=== PATIENT | female | born 1960 | race Caucasian/White ===

== ENCOUNTER 2021-01-07 13:30 | Outpatient (REF) | payer OTHER, SELFPAY ==
--- NOTE | ~2021-01-07 | MM_ITS ---
EXAMINATION: MM SCREENING DIGITAL BREAST TOMOSYNTHESIS, BILATERAL CLINICAL INFORMATION: Screening. Asymptomatic. Family history breast cancer, mother. The lifetime risk of breast cancer based on the Tyrer-Cuzick Model is 24%. COMPARISON: Mammography: 01/08/2020, 12/27/2019, 11/28/2018, 10/06/2017, 09/26/2017, 10/31/2016 TECHNIQUE: Digital breast tomosynthesis is performed in both the craniocaudal and mediolateral oblique views along with computer-aided detection (CAD). Synthesized 2D images are generated from the tomosynthesis. FINDINGS: The breasts are heterogeneously dense, which may obscure small masses (ACR BI-RADS breast composition Category c). Breast tissue composition borders on average fibroglandular. Parenchymal pattern is similar to prior studies. There are scattered bilateral stable asymmetries in the following fibronodular pattern as before. There is no developing density or interval mass or architectural abnormality. There are scattered bilateral round isolated and small grouped calcifications again seen. The axilla are unremarkable. There are no significant changes. MM/MM tomosynthesis screening BI IMPRESSION: No significant changes from prior studies. ASSESSMENT: BI-RADS 2: Benign RECOMMENDATION: Routine annual mammography screening. This patient's information was entered into a reminder system with a target due date for their next mammogram.
== END 2021-01-07 13:31 | disposition home or self-care (01) ==
LOC: HO.MAMMO 13:30
PROVIDERS: PCP Nurse Practitioner Family; Visit Provider Nurse Practitioner Family
DX: Z12.31 Encounter for screening mammogram for malignant neoplasm of breast (principal)
CPT/HCPCS: 77063; 77067

== ENCOUNTER 2022-01-14 09:20 | Outpatient (REF) | payer OTHER, SELFPAY ==
--- NOTE | ~2022-01-14 | MM_ITS ---
EXAMINATION: MM SCREENING DIGITAL BREAST TOMOSYNTHESIS, BILATERAL CLINICAL INFORMATION: Screening. Asymptomatic. Family history breast cancer, mother. The lifetime risk of breast cancer based on the Tyrer-Cuzick Model is 25%. COMPARISON: Mammography: 01/07/2021, 6 01/08/2020, 12/27/2019, 11/28/2018 TECHNIQUE: Digital breast tomosynthesis is performed in both the craniocaudal and mediolateral oblique views along with computer-aided detection (CAD). Synthesized 2D images are generated from the tomosynthesis. FINDINGS: There are scattered areas of fibroglandular density (ACR BI-RADS breast composition Category b). Breast tissue composition borders on heterogeneously dense. There is fine fibronodular parenchymal pattern and stable bilateral asymmetries similar to prior studies. There is no interval significant mass or architectural abnormality or developing density. The axilla and skin contours are unremarkable. Right breast has stable grouped benign-appearing calcifications mid upper outer quadrant and some other scattered calcifications as before. Left breast has increased grouped calcifications overlying stable smooth nodule posterior 7:00 position, likely representing degenerating fibroadenoma. Patient will be recalled for additional magnification views to fully characterize. 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 Right: -No mammographic evidence of malignancy. ASSESSMENT: BI-RADS 0: Incomplete - Need Additional Imaging Evaluation RECOMMENDATION: 1. Additional views of the left breast (magnification CC, magnification LM. 2. Radiology department staff will contact the patient for additional imaging. This patient's information was entered into a reminder system with a target due date for their next mammogram.
== END 2022-01-14 09:21 | disposition home or self-care (01) ==
LOC: HO.MAMMO 09:20
PROVIDERS: PCP Nurse Practitioner Family; Visit Provider Nurse Practitioner Family
DX: Z12.31 Encounter for screening mammogram for malignant neoplasm of breast (principal)
CPT/HCPCS: 77063; 77067

== ENCOUNTER 2022-01-31 15:12 | Outpatient (REF) | payer OTHER, SELFPAY ==
--- NOTE | ~2022-01-31 | MM_ITS ---
EXAMINATION: MM DIAGNOSTIC DIGITAL MAMMOGRAPHY, LEFT CLINICAL INFORMATION: Density with calcifications. COMPARISON: Mammography: 01/14/2022 and studies dating back to 05/22/2015. TECHNIQUE: Digital mammography is performed in the following views: Spot magnification views in craniocaudal and 90 degree mediolateral views. FINDINGS: The breasts are heterogeneously dense, which may obscure small masses (ACR BI-RADS breast composition Category c). A density with calcifications is seen about the inferior aspect of the left breast without evidence of layering of the calcification on 90 degree view. One of the calcifications is very coarse with the other calcifications being punctate without linear or branching forms. These may represent calcifications in a fibroadenoma. A six-month followup left breast mammography with spot magnification views is recommended to ensure stability. Results are provided to the patient at time of visit by the technologist. MM/MM added views LT IMPRESSION: Probably benign calcifications with density about the inferior aspect of the left breast for which six-month followup study is recommended. ASSESSMENT: BI-RADS 3: Probably Benign. RECOMMENDATION: Diagnostic mammography in 6 months. This patient's information was entered into a reminder system with a target due date for their next mammogram.
== END 2022-01-31 15:13 | disposition home or self-care (01) ==
LOC: HO.MAMMO 15:12
PROVIDERS: PCP Nurse Practitioner Family; Visit Provider Nurse Practitioner Family
DX: R92.1 Mammographic calcification found on diagnostic imaging of breast (principal); R92.8 Other abnormal and inconclusive findings on diagnostic imaging of breast
CPT/HCPCS: 77065

== ENCOUNTER 2022-08-02 13:50 | Outpatient (REF) | payer OTHER, MEDICAID, SELFPAY ==
--- NOTE | ~2022-08-02 | MM_ITS ---
EXAMINATION: MM DIAGNOSTIC DIGITAL BREAST TOMOSYNTHESIS, LEFT CLINICAL INFORMATION: Short interval follow-up probable benign calcifications posterior 6:30 left breast. Family history breast cancer, mother. COMPARISON: Mammography: 01/31/2022, 01/14/2022 (BI-RADS 0) 01/07/2021 TECHNIQUE: Digital breast tomosynthesis is performed in both the craniocaudal and mediolateral oblique views along with computer-aided detection (CAD). Synthesized 2D images are generated from the tomosynthesis. Additional magnification left CC and magnification left LM x2 views are obtained. FINDINGS: The breasts are heterogeneously dense, which may obscure small masses (ACR BI-RADS breast composition Category c). Breast tissue composition borders on average fibroglandular. There is no developing density or interval architectural abnormality. Grouped calcifications for follow-up posterior 6:30 position overlying a stable nodular asymmetry are similar to prior diagnostic exam, possibly fibroadenomatous change. They will be reassessed again at time of annual bilateral mammography, due in 6 months. Results are provided to the patient at time of visit by the technologist. MM/MM tomosynthesis diagnostic LT IMPRESSION: No significant change in probable benign calcifications posterior lower left breast, possibly early fibroadenomatous changes. ASSESSMENT: BI-RADS 3: Probably Benign RECOMMENDATION: Diagnostic mammography at time of annual bilateral exam, due in 6 months. This patient's information was entered into a reminder system with a target due date for their next mammogram.
== END 2022-08-02 13:51 | disposition home or self-care (01) ==
LOC: HO.MAMMO 13:50
PROVIDERS: PCP Nurse Practitioner Family; Visit Provider Nurse Practitioner Family
DX: R92.1 Mammographic calcification found on diagnostic imaging of breast (principal); R92.8 Other abnormal and inconclusive findings on diagnostic imaging of breast
CPT/HCPCS: 77061; 77065

== ENCOUNTER 2023-01-26 12:48 | Outpatient (REF) | payer OTHER, SELFPAY ==
--- NOTE | ~2023-01-26 | MM_ITS ---
EXAMINATION: MM DIAGNOSTIC DIGITAL BREAST TOMOSYNTHESIS, BILATERAL CLINICAL INFORMATION: Diagnostic for evaluation of calcifications in the left breast posterior, lower slightly inner quadrant. Patient also due for bilateral screening exam. The lifetime risk of breast cancer based on the Tyrer-Cuzick Model is 25%. Additional annual screening with breast MRI may be of benefit in women with a Score of 20% or greater. COMPARISON: Mammography: 08/02/2022, 01/31/2022, 01/14/2022, 01/07/2021, and dating back to 2019. TECHNIQUE: Digital breast tomosynthesis is performed in both the craniocaudal and mediolateral oblique views along with computer-aided detection (CAD). Synthesized 2D images are generated from the tomosynthesis. In addition a 2-D left spot CC magnification view was obtained. FINDINGS: The breasts are heterogeneously dense, which may obscure small masses (ACR BI-RADS breast composition Category c). In the left breast, slightly inner lower quadrant, there is a group of calcifications, with increasing number but with stable overall course morphology supporting degenerating fibroadenoma. These remain probably benign, and 6 month interval follow-up right breast diagnostic mammogram to include CC and ML spot magnification views recommended. In the right breast, there are stable benign calcifications in the outer quadrant as before. There are no suspicious masses, suspicious grouped calcifications, or areas of architectural distortion in either breast. The overall heterogeneously dense parenchymal pattern is stable from prior exams. Results were provided to the patient at time of visit by the technologist. MM/MM tomosynthesis diagnostic BI IMPRESSION: Similar probably benign findings left breast, most likely related to continued degeneration of a fibroadenoma. 6 month follow-up mammography recommended as detailed above. No suspicious abnormalities in the right breast. Stable benign right breast findings. ASSESSMENT: BI-RADS BI-RADS 3 - Probably benign finding(s) - 6 month follow-up suggested RECOMMENDATION: 6 Month F/U This patient's information was entered into a reminder system with a target due date for their next mammogram.
== END 2023-01-26 12:49 | disposition home or self-care (01) ==
LOC: HO.MAMMO 12:48
PROVIDERS: PCP Nurse Practitioner Family; Visit Provider Nurse Practitioner Family
DX: R92.8 Other abnormal and inconclusive findings on diagnostic imaging of breast (principal)
CPT/HCPCS: 77062; 77066

== ENCOUNTER → 2023-01-26 13:00 | Outpatient (BNV) | payer OTHER, SELFPAY | PROVIDERS: PCP Nurse Practitioner Family; Visit Provider Radiology Diagnostic Radiology | DX: R92.1 Mammographic calcification found on diagnostic imaging of breast (principal) | CPT/HCPCS: 77062; 77066 ==

== ENCOUNTER 2023-08-01 08:38 | Outpatient (REF) | payer OTHER, SELFPAY ==
--- NOTE | ~2023-08-01 | MM_ITS ---
EXAMINATION: MM DIAGNOSTIC DIGITAL BREAST TOMOSYNTHESIS, LEFT CLINICAL INFORMATION: MM diagnostic mammography followed calcifications of the lower inner quadrant of the left breast. COMPARISON: Mammography: This study is compared with prior mammograms dating back to 2018. TECHNIQUE: Digital breast tomosynthesis is performed in both the craniocaudal and mediolateral oblique views along with computer-aided detection (CAD). Synthesized 2D images are generated from the tomosynthesis. FINDINGS: There are scattered areas of fibroglandular density (ACR BI-RADS breast composition Category b). There are grouped calcifications in the lower inner quadrant of the left breast. Several of them are coarse however, there are smaller calcifications in the same region. The smaller calcifications are indeterminate and may not be positive the same process larger calcifications. For this reason, stereotactic biopsy is advised MM/MM tomosynthesis diagnostic LT IMPRESSION: Stereotactic biopsy advised for indeterminate left breast calcifications. ASSESSMENT: BI-RADS BI-RADS 4 - Suspicious finding RECOMMENDATION: Biopsy recommended Results were provided to the patient at time of visit by the technologist. This patient's information was entered into a reminder system with a target due date for their next mammogram.
== END 2023-08-01 08:39 | disposition home or self-care (01) ==
LOC: HO.MAMMO 08:38
PROVIDERS: PCP Nurse Practitioner Family; Visit Provider Nurse Practitioner Family
DX: R92.8 Other abnormal and inconclusive findings on diagnostic imaging of breast (principal)
CPT/HCPCS: 77061; 77065

== ENCOUNTER → 2023-08-01 09:00 | Outpatient (BNV) | payer OTHER, SELFPAY | PROVIDERS: PCP Nurse Practitioner Family; Visit Provider Radiology Diagnostic Radiology | DX: R92.1 Mammographic calcification found on diagnostic imaging of breast (principal) | CPT/HCPCS: 77061; 77065 ==

== ENCOUNTER 2023-08-04 08:05 | Outpatient (AMB) | payer OTHER, SELFPAY ==
--- NOTE | 2023-08-04 08:14 | MHC.OFFVIS ---
Intake Vital Signs 08/04/23 08:26 Height 5 ft 9 in Weight 177 lb BMI 26.1 BP 165/90 H Blood Pressure Location Lt brachial Position Sitting Pulse 93 Intake Visit Reasons: Left breast stereo bx for calcifications Intake Note: Patient is seen in office for stereo biopsy consult, following left breast for calcifications left inner quadrant. 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 This is a combination of both large and microcalcifications which were felt to be indeterminate therefore stereotactic guided core biopsy recommended (BI-RADS 4). She reports a sensation in her left breast over the past 6 months was unable to feel any palpable mass. She denies any skin change, nipple discharge, enlarged lymph nodes or other breast changes. She does have tenderness in the right breast on occasion. She denies a previous history of breast surgery or breast cancer. Her family history is significant for her mother having breast cancer in her late 50s. Her sister has history of endometrial cancer. She is . [facility] Surgical History History of colonoscopy History of foot surgery History of surgery on arm Family History Father Cancer Mother Breast cancer Maternal Aunt Breast cancer Review of Systems Const All systems reviewed & are unremarkable except as noted in HPI and below Physical Exam Vital Signs: Last Vital Signs Pulse 93 08/04/23 08:26 BP 165/90 H 08/04/23 08:26 BMI result Body Mass Index 26.1 Const General: cooperative and no acute distress Nutritional Appearance: well nourished Orientation/consciousness: patient oriented x3 Limitations: no limitations HEENT Head: Yes normocephalic and Yes atraumatic Ears: hearing grossly normal bilaterally Chest Other: Left breast: No skin change, no nipple retraction, no nipple discharge, no palpable mass, no enlarged lymph nodes. Right breast: No skin change, no nipple retraction, no nipple discharge, no palpable mass, no enlarged lymph nodes Resp Effort & Inspection: normal respiratory effort, no audible wheezes, no cough and no respiratory distress Cardio Jugular venous distension: no JVD GI Inspection: Yes normal to inspection Skin Other: Warm, dry, no rash Neuro General: patient oriented x3 Extrem General: Yes no clubbing, cyanosis or edema Results Reviewed Results Reviewed: Left breast: Assessment & Plan Assessment & Plan (1) Abnormal mammogram of left breast: Code(s): R92.8 - Other abnormal and inconclusive findings on diagnostic imaging of breast Plan 63-year-old female patient presenting with a recent mammogram which revealed cluster of microcalcifications in the left breast among larger grouping of calcifications felt to be indeterminate for malignancy (BI-RADS 4). Stereotactic guided core biopsy is scheduled for next week at the [facility]. On examination the patient has no suspicious findings with special attention to the left breast as described by the mammogram. Some mild tenderness is noted in the right breast. Patient does have a strong family history of breast cancer including her mother and may be a candidate for genetic testing. I recommended she return to the office 1 week following the stereotactic guided core biopsy to review pathology results and discuss treatment options. She expressed understanding and agrees with the plan. Coding Level of Care Code New Pt Level 4 (96094) Diagnoses Abnormal mammogram of left breast R92.8
[2023-08-04 08:26] VITALS: BP 165/90; PULSE 93; BMI 26.1
== END 2023-08-04 08:53 | disposition home or self-care (01) ==
PROVIDERS: PCP Family Medicine; Visit Provider Surgery
DX: R92.8 Other abnormal and inconclusive findings on diagnostic imaging of breast (principal)
CPT/HCPCS: 99204

== ENCOUNTER → 2023-08-04 08:05 | Outpatient (BNVA) | payer OTHER, SELFPAY | PROVIDERS: PCP Nurse Practitioner Family; Visit Provider Surgery ==

== ENCOUNTER 2023-08-10 07:34 | Outpatient (REF) | payer OTHER, SELFPAY ==
--- NOTE | ~2023-08-10 | MM_ITS ---
EXAMINATION: STEREOTACTIC TOMOSYNTHESIS-GUIDED VACUUM-ASSISTED BREAST BIOPSY, LEFT SPECIMEN RADIOGRAPH, LEFT POST PROCEDURE DIGITAL MAMMOGRAM, LEFT CLINICAL INFORMATION: Increasing minimally pleomorphic calcifications left breast posterior, lower slightly inner quadrant, recommended for biopsy. Suspect these are probably benign related to degenerating fibroadenoma. COMPARISON: Mammography 08/01/2023, 01/26/2023, 08/02/2022, and 01/31/2022. TECHNIQUE/PROCEDURE: Informed consent was obtained from the patient after discussion of the benefits, risks, and alternatives to biopsy today. Patient appeared to understand. Gave opportunity for questions. Patient signed consent form. BIOPSY TABLE: [employer] Affirm Prone Biopsy System. LESION: Calcifications left breast lower slightly inner quadrant, posterior one third. LOCAL ANESTHESIA: 1 mL 1% lidocaine; 20 mL 1% lidocaine with epinephrine. DERMATOTOMY: Single skin fermin dermatotomy performed. NEEDLE: [employer] Eviva 9-gauge vacuum assisted core biopsy device. APPROACH: caudal cranial. TARGETING: Combination of digital breast tomosynthesis and stereotactic digital mammography used for targeting. CORES: 6. CLIP: [employer] Sec[employer]Mark Barrel-shaped marker. SPECIMEN RADIOGRAPH: Specimen radiograph is taken in separate room using digital mammography. The index calcifications are in the excised cores. POST PROCEDURE UNILATERAL DIGITAL MAMMOGRAM: The post biopsy mammogram is performed in separate room using separate digital mammography equipment from the biopsy procedure. CC and ML views are obtained. There are scattered areas of fibroglandular density (breast composition category: b). The clip marker is in position. No evidence of clip marker migration. The calcifications are near completely gone at the biopsy site. No gross hematoma. The patient tolerated the procedure well. No immediate complications. Home instructions reviewed with the patient. Final pathology results are pending. MM/MM stereotactic biopsy LT IMPRESSION: 1. Digital tomosynthesis-guided core biopsy left breast with clip placement. 2. Specimen radiograph taken and post procedure mammogram. There is satisfactory and accurate positioning of the biopsy clip. 3. Final pathology results pending. An addendum report will be issued.
[2023-08-10] MEDS: Sodium Bicarbonate 8.4% 50 MEQ/50 ML VIAL SUBCUT (09:28)
[2023-08-10] MEDS: Lidocaine HCl 1 % 20 ML VIAL SUBCUT (09:32)
== END 2023-08-10 07:35 | disposition home or self-care (01) ==
LOC: HO.MAMMO 07:34
PROVIDERS: PCP Nurse Practitioner Family; Visit Provider Nurse Practitioner Family
DX: R92.8 Other abnormal and inconclusive findings on diagnostic imaging of breast (principal)
CPT/HCPCS: 19081; 88305; A4648

== ENCOUNTER → 2023-08-10 08:00 | Outpatient (BNV) | payer OTHER, SELFPAY | PROVIDERS: PCP Nurse Practitioner Family; Visit Provider Radiology Diagnostic Radiology | DX: R92.1 Mammographic calcification found on diagnostic imaging of breast (principal) | CPT/HCPCS: 19081; 77065 ==

== ENCOUNTER 2023-08-22 08:52 | Outpatient (AMB) | payer OTHER, SELFPAY ==
--- NOTE | 2023-08-22 09:10 | A.OFFVIS_ITS ---
Intake Vital Signs 08/22/23 09:16 Height 5 ft 9 in Weight 178 lb 6 oz BMI 26.3 BP 136/93 H Blood Pressure Location Lt brachial Position Sitting Pulse 92 Intake Visit Reasons: S/p Left breast stereo bx for calcifications Intake Note: Patient is seen in office for stereo biopsy results, following left breast for calcs. 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 Tolerated the procedure well returns today to review the pathology results. Pathology revealed benign breast tissue and fibroadenomatous changes. FOR[facility]LY [facility], [facility] Surgical History History of colonoscopy History of foot surgery History of surgery on arm Family History Father Cancer Mother Breast cancer Maternal Aunt Breast cancer Physical Exam Vital Signs: Last Vital Signs Pulse 92 08/22/23 09:16 BP 136/93 H 08/22/23 09:16 BMI result Body Mass Index 26.3 Const General: cooperative and no acute distress Nutritional Appearance: well nourished Orientation/consciousness: patient oriented x3 Limitations: no limitations HEENT Head: Yes normocephalic and Yes atraumatic Ears: hearing grossly normal bilaterally Chest Other: Exam deferred Resp Effort & Inspection: normal respiratory effort, no audible wheezes, no cough and no respiratory distress Cardio Jugular venous distension: no JVD GI Inspection: Yes normal to inspection Skin Other: Warm, dry, no rash Neuro General: patient oriented x3 Extrem General: Yes no clubbing, cyanosis or edema Assessment & Plan Assessment & Plan (1) Abnormal mammogram of left breast: Code(s): R92.8 - Other abnormal and inconclusive findings on diagnostic imaging of breast Plan 63-year-old female patient presenting with a recent mammogram which revealed cluster of microcalcifications in the left breast among larger grouping of calcifications felt to be indeterminate for malignancy (BI-RADS 4). Stereotactic guided core biopsy is scheduled for next week at the [facility]. On examination the patient has no suspicious findings with special attention to the left breast as described by the mammogram. Some mild tenderness is noted in the right breast. Stereotactic guided core biopsy was performed and pathology revealed fibroadenoma with benign breast tissue. A copy of the report was provided to the patient. She should follow up as needed. Coding Level of Care Code Est Pt Level 3 (90628) Diagnoses Abnormal mammogram of left breast R92.8
[2023-08-22 09:16] VITALS: BP 136/93; PULSE 92; BMI 26.3
== END 2023-08-22 09:31 | disposition home or self-care (01) ==
PROVIDERS: PCP Family Medicine; Visit Provider Surgery
DX: R92.8 Other abnormal and inconclusive findings on diagnostic imaging of breast (principal)
CPT/HCPCS: 99213

== ENCOUNTER → 2023-08-22 08:52 | Outpatient (BNVA) | payer OTHER, SELFPAY | PROVIDERS: PCP Family Medicine; Visit Provider Surgery ==

== ENCOUNTER 2024-08-15 07:40 | Outpatient (REF) | payer OTHER, SELFPAY | END 2024-08-15 07:41 | disposition home or self-care (01) | LOC: HO.MAMMO 07:40 | PROVIDERS: PCP Family Medicine; Visit Provider Family Medicine | DX: Z12.31 Encounter for screening mammogram for malignant neoplasm of breast (principal) | CPT/HCPCS: 77063; 77067 ==

== ENCOUNTER → 2024-08-15 08:15 | Outpatient (BNV) | payer OTHER, SELFPAY | PROVIDERS: PCP Family Medicine; Visit Provider Internal Medicine | DX: Z12.31 Encounter for screening mammogram for malignant neoplasm of breast (principal) | CPT/HCPCS: 77063; 77067 ==